=== PATIENT | male | born 1945 | race Caucasian/White ===

== ENCOUNTER 2019-04-21 08:30 | Outpatient (RCR) | payer MEDICARE, OTHER, SELFPAY ==
--- NOTE | 2019-04-07 09:38 | PTOPEVAL ---
Thank you for referring this patient to [facility]. Please review, sign, date and return this plan of care BRUCE. Pt seen for PT eval today due to chronic back pain. He demonstrates decreased back and hip motion with muscle length restriction/tightness. He demonstrates posture and gt impairments. He requires additional skilled therapy to address impairments and provide a HEP. Cont PT 1x/wk x 3-4 wk. I agree with and certify that the following plan of care is medically necessary. Referring Physician Date Attending Provider: Judah Mart MD Referring Provider: *PT Outpatient Evaluation Start: 04/07/19 08:28 Freq: Status: Active Protocol: Document 04/07/19 08:31 DENISE (Rec: 04/07/19 09:38 [id number]) Therapy Assessment Status Assessment Status Assessment Status Evaluation Outpatient Past Medical History Neurological History Hx Neurological Disorders No Significant History Cardiovascular History Hx Hypertension Yes Gastrointestinal History Hx Gastrointestinal Disorders No Significant History Genitourinary History Hx Genitourinary Disorders No Significant History Musculoskeletal History Hx Back Injury Yes: 10 years ago Hx Back Pain Yes: OA of back Hx Other Musculoskeletal Disorders Yes: rotator cuff tear of rigth Evaluation Information Problem Diagnosis low back pain Onset 1 year ago Subjective Information he reports deep buttock/hip Query Text:As Reported By Patient/ pain that he thought was hips, Family but x-rays shows it was coming from his back. He had therapy 5 years ago, but had a flare-up of his sciatic nerve pain. He reports the leg stretching is what caused his pain. 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 He is perform resistance ex, but he feels a stretching when performing the exercise. He also c/o radiating symptoms into siobhan UE with right hand weakness. Diagnostic Tests X-Rays For This Problem No Previous Treatments Previous Treatments For This Problem 5-6 years ago Prior Level of Function Activity Level (Last 3 Months) Occupation mcdaniel Activity of Daily Living Ability Independent Indoor/Home Mobility Independent Community Mobility Independent Stairs Ability Independent Cooking Yes Cleaning Ye
--- NOTE | 2019-05-03 16:06 | PCPTNOTE ---
Patient called & cancelled scheduled appointment for 05/04/19. He does not have additional appointment scheduled. Will plan to DC if no additional f/u scheduled.
--- NOTE | 2019-06-10 11:34 | PCPTNOTE ---
Admitting Provider: Attending Provider: Judah Mart MD Patient:Fabiano Martinez Date of :1945 Discharge Summary Patient has not returned for any further treatments since 04/21/2019, therefore he will be discharged at this time. Patient?s initial visit was on 04/07/2019 08:30 and he had a total of 1 visits. The goals have been not met. [facility] you [facility]. Please review, sign, date and return this discharge summary BRUCE. I have been updated about the patient's current status and I agree with discharge from the above service at this time. Referring Physician Date
== END 2019-06-13 08:40 | disposition home or self-care (01) ==
LOC: ANHPT 08:30
PROVIDERS: Visit Provider Orthopaedic Surgery
DX: M54.5 Low back pain (principal)
CPT/HCPCS: 97110; 97161

== ENCOUNTER 2019-04-28 08:37 | Outpatient (CLI) | payer MEDICARE, OTHER, SELFPAY ==
--- NOTE | ~2019-04-28 | CT_ITS ---
EXAMINATION: CTA abdomen pelvis EXAM DATE: 04/28/2019 09:26 INDICATION: Abdominal aortic aneurysm. TECHNIQUE: Spiral CT angiogram of the abdomen and pelvis was performed following intravenous injectio n of 100 mL Omnipaque 350. Axial, coronal and sagittal images were reviewed. Maximum intensity proje ction 3-D reconstructions of the arteries were created by the technologist on dedicated workstation. The dose-length product (DLP) for this examination was 1245.01 mGy-cm. The exposure was tailored a ccording to patient size (auto mA exposure control), and iterative reconstruction (ASIR) was used as additional dose reduction technique. There is no prior study for comparison. FINDINGS: Left inguinal hernia repair. Small right inguinal fat-containing hernia. Abdominal aorta is normal in caliber with mild scattered arteriosclerotic disease. Renal, celiac, superior and inferior mesenteric arteries are patent. No aortic dissection. The liver, spleen, adrenal glands and pancreas are unremarkable. Gallbladder is unremarkable. No bi liary obstruction. Portal and splenic veins are patent. Kidneys enhance symmetrically. There is no hydronephrosis. The prostate is unremarkable. The bladder is unremarkable. There is no retroperi toneal or pelvic lymphadenopathy. The appendix is not positively visualized. There is no pericecal inflammatory change to suggest appe ndicitis. There is moderate descending and sigmoid colonic diverticulosis. There is no adjacent infl ammatory change to suggest diverticulitis. The stomach and small bowel are unremarkable. There is ex pected amount of colonic stool. No free intraperitoneal gas. Mild cardiomegaly. The lung bases a re unremarkable. There are no osteoblastic or osteolytic lesions identified. Overall moderate lumbar spondylosis. IMPRESSION: 1. Normal abdominal aortic caliber with mild arteriosclerotic disease. 2. Moderate sigmoid and descending colonic diverticulosis. Reviewed, dictated and finalized at location B.
[2019-04-28 09:20] LABS: Estimated Glomerular Filt Rate > 60
[2019-04-28 10:36] LABS: Alanine Aminotransferase 41 U/L (4-50); Albumin Level 4.5 g/dL (3.5-5.1); Alkaline Phosphatase 41 U/L (38-126); Aspartate Amino Transferase 42 U/L (17-59); Bilirubin,Total 0.6 mg/dL (0.2-1.3); Blood Urea Nitrogen 17 mg/dL (9-20); Calcium 9.5 mg/dL (8.4-10.2); Carbon Dioxide 25 mmol/L (22-30); Chloride 102 mmol/L (98-107); Cholesterol 133 mg/dL (0-200); Estimated Glomerular Filt Rate > 60; Glucose 118 mg/dL (75-110); HDL Direct 68 mg/dL; Potassium 4.3 mmol/L (3.4-5.0); Sodium 138 mmol/L (137-145); Triglycerides 86 mg/dL (<150)
[2019-04-28 10:47] LABS: LDL Cholesterol Direct 53 mg/dL
== END 2019-04-28 08:38 | disposition home or self-care (01) ==
LOC: ANHIMG 08:39
PROVIDERS: PCP Internal Medicine; Visit Provider Internal Medicine
DX: I71.4 Abdominal aortic aneurysm, without rupture (principal); I10 Essential (primary) hypertension; E78.5 Hyperlipidemia, unspecified; K57.30 Diverticulosis of large intestine without perforation or abscess without bleeding
CPT/HCPCS: 36415; 74174; 80053; 80061; Q9967

== ENCOUNTER 2019-06-15 10:30 | Outpatient (CLI) | payer MEDICARE, OTHER, SELFPAY ==
--- NOTE | ~2019-06-15 | MR_ITS ---
EXAMINATION: MR cervical spine wo con DATE: 06/15/2019 13:41 INDICATION: Neck pain. Left shoulder and elbow pain. TECHNIQUE: Magnetic resonance imaging (MRI) of the cervical spine was performed without intravenous c ontrast. Sequences included sagittal T2-weighted FSE, sagittal STIR FSE, sagittal T1-weighted FSE, ax ial MERGE, and axial T2-weighted FSE. COMPARISON: None FINDINGS: There is mild kyphosis of cervical spine. There is 2 mm anterolisthesis of C4 on C5. There is 9 degrees dextrocurvature of cervical spine. Vertebral body heights are normal. There is mildly de creased disc height at C3-C4 and C4-C5 and moderately decreased disc height at C5-C6 and C6-C7. The s jonah cord signal intensity is normal. The following disc levels are specifically discussed: C2-C3: The disc does not extend beyond the endplate margin. There is no uncovertebral joint osteoarth ritis. There is severe right facet joint osteoarthritis. There is ankylosis of left facet joint with mild hypertrophy There is mild bilateral neural foraminal stenosis. There is no central canal stenosi s. C3-C4: The disc does not extend beyond the endplate margin. There is ankylosis of the uncovertebral j oints without hypertrophy. There is severe right facet joint osteoarthritis. There is ankylosis of le ft facet joint with moderate hypertrophy. There is mild right and moderate left neural foraminal sten osis. There is no central canal stenosis. C4-C5: The disc does not extend beyond the endplate margin. There is mild right and moderate left unc overtebral joint osteoarthritis. There is severe bilateral facet joint osteoarthritis. There is mild right and moderate left neural foraminal stenosis. There is no central canal stenosis. C5-C6: The disc is bulging. There is severe bilateral uncovertebral joint osteoarthritis. There is mo derate right and severe left facet joint osteoarthritis. There is moderate bilateral neural foraminal stenosis. There is mild central canal stenosis with ventral indentation of spinal cord. C6-C7: The disc is bulging. There is severe bilateral uncovertebral joint osteoarthritis. There is mi ld bilateral facet joint osteoarthritis. There is severe bilateral neural foraminal stenosis. There i s moderate central canal stenosis with ventral and dorsal indentation of the spinal cord. C7-T1: The disc does not extend beyond the endplate margin. There is no uncovertebral joint osteoarth ritis. There is mild bilateral facet joint osteoarthritis. There is mild bilateral neural foraminal s tenosis. There is no central canal stenosis. IMPRESSION: 1. Severe cervical spondylosis. Reviewed, dictated and finalized at location A.
--- NOTE | ~2019-06-15 | MR_ITS ---
EXAMINATION: MR humerus LT wo con DATE: 06/15/2019 13:41 INDICATION: Left biceps weakness. Left shoulder and elbow pain. TECHNIQUE: Magnetic resonance imaging (MRI) of the left humerus was performed without intravenous con trast. Sequences included axial PD-weighted FS FSE and STIR FSE, sagittal STIR FSE, coronal oblique P D-weighted FS FSE and T2-weighted FS FSE, and sagittal oblique T2-weighted FS FSE and T1-weighted FSE . COMPARISON: Left shoulder MRI 07/03/2013 FINDINGS: Coracoacromial arch: The acromion undersurface is curved in morphology (type II). There is severe acromial clavicular join t osteoarthritis including inferior directed osteophytes. There is mild subacromial/subdeltoid bursit is. Rotator cuff: There is an articular-sided partial-thickness tear of supraspinatus tendon measuring 11 mm anterior t o posterior by 13 mm proximal to distal by up to 90% tendon thickness. There is mild infraspinatus te ndinopathy. Teres minor tendon is normal. There is mild subscapularis tendinopathy. There is no asymm etric fatty atrophy of the rotator cuff muscle bellies. Biceps tendon and glenoid labrum: Proximal biceps tendon is in bicipital groove. There is mild intra-articular biceps tendinopathy. The distal biceps tendon is normal. The biceps muscle belly is normal. There is a degenerative tear of t he superior labrum (type I SLAP tear). Fluid: There is no glenohumeral joint effusion. Bones/cartilage: Humeral head cartilage is normal. Glenoid cartilage is normal. IMPRESSION: 1. Mild proximal biceps tendinopathy. Normal biceps muscle and distal tendon. 2. Partial-thickness tear of supraspinatus tendon. 3. Severe acromioclavicular joint osteoarthritis. 4. Mild subacromial/subdeltoid bursitis. Reviewed, dictated and finalized at location A.
== END 2019-06-15 10:31 | disposition home or self-care (01) ==
PROVIDERS: PCP Internal Medicine; Visit Provider Internal Medicine
DX: M54.2 Cervicalgia (principal); M25.522 Pain in left elbow; M25.512 Pain in left shoulder; M75.82 Other shoulder lesions, left shoulder; S46.012A Strain of muscle(s) and tendon(s) of the rotator cuff of left shoulder, initial encounter; M19.012 Primary osteoarthritis, left shoulder; M75.52 Bursitis of left shoulder; M47.812 Spondylosis without myelopathy or radiculopathy, cervical region
CPT/HCPCS: 72141; 73218

== ENCOUNTER 2020-02-07 08:12 | Outpatient (CLI) | payer MEDICARE, OTHER, SELFPAY ==
[2020-02-07 08:49] LABS: Basophils Percent Auto 0.6 % (0.2-1.2); Eosinophils Absolute Auto 0.2 K/mm3 (0-0.3); Eosinophils Percent Auto 3.1 % (0-4.4); Hematocrit 40.4 % (42.0-52.0); Hemoglobin 14.5 g/dL (14.0-18.0); Immature Granulocyte Absolute 0.02 K/mm3 (0.00-0.031); Immature Granulocyte Percent A 0.3 % (0-0.5); Lymphocytes Absolute Auto 2.24 K/mm3 (0.9-3.2); Lymphocytes Percent Auto 31.1 % (18.3-44.2); Mean Corpuscular HGB Conc 35.9 g/dl (32-36); Mean Corpuscular Hemoglobin 32.9 pg (26-34); Mean Corpuscular Volume 91.6 fl (80-100); Mean Platelet Volume 9.8 fl (7.4-10.4); Monocytes Absolute Auto 0.6 K/mm3 (0.1-0.6); Monocytes Percent Auto 8.3 % (2.6-8.5); Neutrophils Absolute Auto 4.1 K/mm3 (1.3-6.7); Neutrophils Percent Auto 56.6 % (45.5-73.1); Platelet Count Result 185 k/mm3 (150-375); Red Blood Count 4.41 M/mm3 (4.6-6.20); Red Cell Distribution Width 12.8 % (11.5-14.5); White Blood Count 7.2 K/mm3 (4.5-10.0)
[2020-02-07 09:08] LABS: Alanine Aminotransferase 49 U/L (4-50); Albumin Level 4.4 g/dL (3.5-5.1); Alkaline Phosphatase 41 U/L (38-126); Anion Gap 8 mmol/L (8-16); Aspartate Amino Transferase 50 U/L (17-59); Bilirubin,Total 0.8 mg/dL (0.2-1.3); Blood Urea Nitrogen 22 mg/dL (9-20); Calcium 10.2 mg/dL (8.4-10.2); Carbon Dioxide 28 mmol/L (22-30); Chloride 102 mmol/L (98-107); Cholesterol 151 mg/dL (0-200); Estimated Glomerular Filt Rate > 60; Glucose 127 mg/dL (75-110); HDL Direct 62 mg/dL; Potassium 4.4 mmol/L (3.4-5.0); Sodium 138 mmol/L (137-145); Triglycerides 102 mg/dL (<150); Uric Acid 4.8 mg/dL (3.5-8.5)
[2020-02-07 09:18] LABS: LDL Cholesterol Direct 67 mg/dL
[2020-02-07 09:29] LABS: Free T4 Free Thyroxine 0.74 ng/mL (0.78-2.19); Vitamin D 25 Hydroxy 54.5 ng/mL
[2020-02-07 09:37] LABS: Prostate Specific Antigen 1.5 ng/mL (< OR = 4.0)
[2020-02-07 10:52] LABS: Hemoglobin A1C 5.1 % (<5.7)
== END 2020-02-07 08:13 | disposition home or self-care (01) ==
PROVIDERS: PCP Internal Medicine; Visit Provider Internal Medicine
DX: E78.5 Hyperlipidemia, unspecified (principal); Z79.899 Other long term (current) drug therapy; Z12.5 Encounter for screening for malignant neoplasm of prostate; Z87.39 Personal history of other diseases of the musculoskeletal system and connective tissue; R79.89 Other specified abnormal findings of blood chemistry
CPT/HCPCS: 36415; 80053; 80061; 82306; 83036; 84153; 84439; 84443; 84550; 85025; G0103

== ENCOUNTER → 2020-03-31 09:55 | Outpatient (CLI) | payer MEDICARE, OTHER, SELFPAY ==
[2020-03-31 19:49] LABS: SARS-CoV-2 RNA PCR Negative
== END ==
PROVIDERS: PCP Internal Medicine; Visit Provider Internal Medicine Gastroenterology
DX: Z01.812 Encounter for preprocedural laboratory examination (principal); Z20.822 Contact with and (suspected) exposure to COVID-19
CPT/HCPCS: C9803; U0003; U0005

== ENCOUNTER 2020-08-14 08:27 | Outpatient (CLI) | payer MEDICARE, SELFPAY ==
--- NOTE | ~2020-08-14 | XR_ITS ---
EXAMINATION: XR hip BI 2V w AP pelvis DATE: 08/14/2020 08:50 INDICATION: Bilateral hip pain TECHNIQUE: AP view the pelvis and two views of each hip were obtained. COMPARISON: 04/27/2019 FINDINGS: Bone alignment is normal. There is no fracture. There is mild osteoarthritis of the hips. S evere lumbar spondylosis is noted. Changes in the left pelvis likely reflect inguinal hernia repair. Calcified atherosclerosis is noted. IMPRESSION: 1. Mild osteoarthritis of the hips. Reviewed, dictated and finalized at location B.
== END 2020-08-14 08:28 | disposition home or self-care (01) ==
LOC: ANHIMG 08:35
PROVIDERS: PCP Internal Medicine; Visit Provider Internal Medicine
DX: M16.0 Bilateral primary osteoarthritis of hip (principal)
CPT/HCPCS: 73521

== ENCOUNTER 2020-10-12 03:48 | Day surgery (SDC) | payer MEDICARE, SELFPAY ==
[2020-10-05 14:12] VITALS: BMI 33.5
[2020-10-12 09:35] VITALS: BP 165/75; PULSE 62; RESP 16; TEMP 35.7; O2SAT 98; BMI 33.0
[2020-10-12] MEDS: LACTATED RINGERS 1,000 ML 150 ML IV CONT (09:57)
--- NOTE | 2020-10-12 10:10 | WPDGICN ---
Assessment and Plan Assessment and plan (1) History of colon polyps: Code(s): Z86.010 - Personal history of colonic polyps Status: Acute Assessment and Plan: Patient has a prior history of colon polyps for this reason surveillance colonoscopy is recommended at this time. GI Consult Note Consult date/time: 10/12/20 10:10 HPI: Fabiano Martinez is a 75 year old male presents for surveillance colonoscopy. Patient has a prior history of colon polyps by colonoscopy [address] Bustos. Patient's current weight appetite bowel movements are normal. Patient denies abdominal pain. He has had no bleeding. Presents today for surveillance colonoscopy. Review of Systems Review of Systems: All systems reviewed & are unremarkable except as noted in HPI and below PMFSH Past Medical History Medical History (Updated 10/12/20 @ 10:11 by Chris Carlos MD) Bilateral hip pain BMI 35.0-35.9,adult Cervical radiculopathy Cervicalgia Elevated fasting glucose Elevated serum homocysteine level Encounter for routine adult health examination without abnormal findings Follow up Gout Hyperlipidemia Left arm weakness Left elbow pain Left shoulder pain ELIESER on CPAP Vitamin B12 deficiency Family History Family History Father Family history of suicide Family history of diabetes mellitus in first degree relative Patient's father is Mother Family history of transient ischemic attacks, Onset Age: 70 Patient's mother is Family history of chronic obstructive pulmonary disease Sibling Family history of lupus erythematosus, Onset Age: 47 Patient's brother is Grandparent Family history of suicide Other Diabetes mellitus Family history of cardiovascular disease Social History Social History Smoking status: Never smoker Second hand tobacco smoke exposure: No Alcohol intake: current Drinks per week: 21 Alcohol use details: wine Substance use type: does not use Living arrangements: with family Additional living arrangements comments: Additional occupation/education comments: Farm Spiritual care concerns: No Meds Home Medications and Allergies Home Medications Medication Instructions Recorded Confirmed Type omega-3 fatty acids 1,000 mg 2,000 mg PO BID cap 02/17/19 10/12/20 History capsule azelastine 137 mcg (0.1 %) nasal 2 spray NASAL Q12H #30 ml 05/16/19 10/12/20 Rx spray aerosol amlodipine 10 mg tablet 10 mg PO DAILY #90 tablet 07/07/19 10/12/20 Rx glucosamine sulfate 500 mg tablet 500 mg PO DAILY 02/07/20 10/12/20 History allopurinol 300 mg tablet See Rx Instructions .ROUTE 05/08/20 10/12/20 Rx .COMPLEX #90 tablet rosuvastatin 20 mg tablet See Rx Instructions .ROUTE 06/07/20 10/12/20 Rx .COMPLEX #90 tablet celecoxib 100 mg capsule 100 mg PO BID #180 cap 08/14/20 10/12/20 Rx multivitamin 1 tablet PO DAILY 08/14/20 10/12/20 History losartan 100 mg tablet 100 mg PO DAILY #90 tablet 09/17/20 10/12/20 Rx Allergies Allergy/AdvReac Type Severity Reaction Status Date / Time No Known Allergies Allergy Verified 10/12/20 09:44 Vital Signs Vital Signs - 24 hr 10/12/20 09:35 Temperature 96.3 F L Pulse Rate 62 Respiratory Rate 16 Blood Pressure 165/75 H Pulse Oximetry 98 Exam Narrative: Physical exam reveals patient be alert. Vital signs are stable. HEENT exam is unremarkable. Patient is anicteric. Lungs are clear to auscultation and percussion. Heart is without murmur or extra sounds. Abdominal exam bowel sounds present soft nontender with no organomegaly. Digital external rectal exam is normal.
--- NOTE | 2020-10-12 10:18 | WPDANESEPPF ---
Anes - Initial Pre Proc Eval Procedure: Operation Date: 10/12/20 10:30 Proposed Procedures p Screening Colonoscopy - Chris Carlos MD Date/Time: 10/12/20 10:18 Surgeon: Chris Carlos MD Pre Op Diagnosis: hx of colon polyps Z86.010 Patient Data Age: 75 Gender: M Height: 1.73 m Weight: 98.5 kg Last Vital Signs Temp 96.3 F L 10/12/20 09:35 Pulse 62 10/12/20 09:35 Resp 16 10/12/20 09:35 BP 165/75 H 10/12/20 09:35 Pulse Ox 98 10/12/20 09:35 Allergies Allergy/AdvReac Type Severity Reaction Status Date / Time No Known Allergies Allergy Verified 10/12/20 09:44 Home Medications Medication Instructions Recorded Confirmed Type omega-3 fatty acids 1,000 mg 2,000 mg PO BID cap 02/17/19 10/12/20 History capsule azelastine 137 mcg (0.1 %) nasal 2 spray NASAL Q12H #30 ml 05/16/19 10/12/20 Rx spray aerosol amlodipine 10 mg tablet 10 mg PO DAILY #90 tablet 07/07/19 10/12/20 Rx glucosamine sulfate 500 mg tablet 500 mg PO DAILY 02/07/20 10/12/20 History allopurinol 300 mg tablet See Rx Instructions .ROUTE 05/08/20 10/12/20 Rx .COMPLEX #90 tablet rosuvastatin 20 mg tablet See Rx Instructions .ROUTE 06/07/20 10/12/20 Rx .COMPLEX #90 tablet celecoxib 100 mg capsule 100 mg PO BID #180 cap 08/14/20 10/12/20 Rx multivitamin 1 tablet PO DAILY 08/14/20 10/12/20 History losartan 100 mg tablet 100 mg PO DAILY #90 tablet 09/17/20 10/12/20 Rx Patient hx anesthesia problems: none Family hx anesthesia problems: none PMFSH Past Medical History Medical History (Updated 10/12/20 @ 10:11 by Chris Carlos MD) Bilateral hip pain BMI 35.0-35.9,adult Cervical radiculopathy Cervicalgia Elevated fasting glucose Elevated serum homocysteine level Encounter for routine adult health examination without abnormal findings Follow up Gout Hyperlipidemia Left arm weakness Left elbow pain Left shoulder pain ELIESER on CPAP Vitamin B12 deficiency Family History Family History Father Family history of suicide Family history of diabetes mellitus in first degree relative Patient's father is Mother Family history of transient ischemic attacks, Onset Age: 70 Patient's mother is Family history of chronic obstructive pulmonary disease Sibling Family history of lupus erythematosus, Onset Age: 47 Patient's brother is Grandparent Family history of suicide Other Diabetes mellitus Family history of cardiovascular disease Social History Social History Smoking status: Never smoker Second hand tobacco smoke exposure: No Alcohol intake: current Drinks per week: 21 Alcohol use details: wine Substance use type: does not use Living arrangements: with family Additional living arrangements comments: Additional occupation/education comments: Farm Spiritual care concerns: No Anes - Eval Final PreProcedure Day of Procedure 10/12/20 10:18 Patient weight: obese Heart: regular rate and rhythm Lungs: clear to auscultation Airway: Mallampati scale class II Neurological: alert and oriented Last oral intake: >/= 8 hours ASA classification: III Emergent: no Anesthetic plan: proceed Anesthesia type and monitoring: general GIVS and standard monitoring Informed Consent: The patient's anesthetic plan and its attendant risks and benefits were discussed with the patient/family/POA. Questions were solicited and answers provided to the satisfaction of the patient/family/POA.
[2020-10-12] MEDS: SIMETHICONE ORAL SUSPENSION 20 MG/0.3 ML 30 ML BOTTLE 0.6 ML IRRIGATION (10:27)
[2020-10-12 10:37] VITALS: BP 117/77; PULSE 62; RESP 19; O2SAT 96
[2020-10-12 10:47] VITALS: BP 124/80; PULSE 64; RESP 19; O2SAT 95
[2020-10-12 10:57] VITALS: BP 139/81; PULSE 55; RESP 18; O2SAT 100
== END 2020-10-12 11:10 | disposition home or self-care (01) ==
PROVIDERS: PCP Internal Medicine; Visit Provider Internal Medicine Gastroenterology
PROC: 0DJD8ZZ Inspection of Lower Intestinal Tract, Via Natural or Artificial Opening Endoscopic (ICD-10-PCS; CPT 45378; principal; 2020-10-12 10:30)
DX: Z12.11 Encounter for screening for malignant neoplasm of colon (principal); D12.2 Benign neoplasm of ascending colon; D12.3 Benign neoplasm of transverse colon; D12.4 Benign neoplasm of descending colon; K57.30 Diverticulosis of large intestine without perforation or abscess without bleeding; K64.8 Other hemorrhoids; E78.5 Hyperlipidemia, unspecified; E53.8 Deficiency of other specified B group vitamins; M10.9 Gout, unspecified; M54.12 Radiculopathy, cervical region; G47.33 Obstructive sleep apnea (adult) (pediatric)
CPT/HCPCS: 45385; 88305; J2704; J7120

== ENCOUNTER 2022-06-20 08:07 | Outpatient (CLI) | payer MEDICARE, SELFPAY ==
--- NOTE | ~2022-06-20 | XR_ITS ---
EXAMINATION: XR hip LT 2V w AP pelvis DATE: 06/20/2022 08:36 INDICATION: Bilateral primary osteoarthritis of hip. TECHNIQUE: An anteroposterior view of the pelvis and 2 views of left hip were obtained. COMPARISON: Pelvis and hip radiographs 08/14/2020 FINDINGS: There is lumbar levocurvature and moderate spondylosis. No fracture. There is mild osteoart hritis of the hips. Surgical clips overlying left pelvis are likely from hernia repair. IMPRESSION: 1. Mild osteoarthritis of the hips. Reviewed, dictated and finalized at location A.
--- NOTE | ~2022-06-20 | XR_ITS ---
EXAMINATION: XR lumbar spine min 4V DATE: 06/20/2022 08:36 INDICATION: Low back pain TECHNIQUE: Anteroposterior and lateral in neutral, flexion and extension views of the lumbar spine we re obtained. COMPARISON: 04/27/2019 FINDINGS: 9 degree lumbar levocurvature. 2 mm retrolisthesis of L1 on L2 which is unchanged with flexion or ext ension. Mild hypomobility with no abnormal transitory motion with flexion or extension. Chronic likel y physiologic mild anterior wedging at T11 and T12. Lumbar vertebral body heights are normal. Moderat e disc height loss at L2-L3, L4-L5 and L5-S1, mild to moderate disc height loss at L3-L4 and mild dis c height loss at T12-L1. Moderate to severe lower lumbar facet osteoarthritis. Mild bilateral sacroil iac osteoarthritis. Postoperative change of prior left inguinal hernia repair. IMPRESSION: 1. Moderate lumbar spondylosis with hypomobility an 2 mm retrolisthesis L1 on L2 but no abnormal gonzalez slatory motion with flexion and extension. Reviewed, dictated and finalized at location B. IMPRESSION: 1. Moderate lumbar spondylosis with hypomobility an 2 mm retrolisthesis L1 on L 2 but no abnormal translatory motion with flexion and extension.
== END 2022-06-20 08:08 | disposition home or self-care (01) ==
PROVIDERS: PCP Internal Medicine; Visit Provider Internal Medicine
DX: M16.0 Bilateral primary osteoarthritis of hip (principal); M47.896 Other spondylosis, lumbar region
CPT/HCPCS: 72110; 73502

== ENCOUNTER 2022-06-30 10:15 | Outpatient (CLI) | payer MEDICARE, SELFPAY ==
--- NOTE | ~2022-06-30 | US_ITS ---
EXAMINATION:US venous doppler LE LT INDICATION:Left calf pain TECHNIQUE: Multiple grayscale, color flow and Doppler images of the left lower extremity deep venous systems were obtained and reviewed. COMPARISON:No prior studies for comparison. FINDINGS: The common femoral, superficial femoral and popliteal veins demonstrate normal respiratory variation, augmentation and compressibility. Color flow is also seen within the posterior tibial, pe roneal, greater saphenous and profunda veins. IMPRESSION: 1: No lower extremity deep venous thrombosis. Reviewed, dictated and finalized at location B.
== END 2022-06-30 10:16 | disposition home or self-care (01) ==
PROVIDERS: PCP Internal Medicine; Visit Provider Internal Medicine
DX: M79.605 Pain in left leg (principal); M79.89 Other specified soft tissue disorders; R22.42 Localized swelling, mass and lump, left lower limb
CPT/HCPCS: 93971

== ENCOUNTER 2023-06-15 14:19 | Outpatient (CLI) | payer MEDICARE, SELFPAY ==
--- NOTE | ~2023-06-15 | CT_ITS ---
CT of the Abdomen and Pelvis: Indication: Abdominal pain Technique: 2.5 mm axial scans were obtained through the abdomen and pelvis following intravenous adm inistration of 100 cc of Omnipaque 350. Dose reduction technique was used on this scan by utilizing a utomated exposure control and iterative reconstruction technique. The dose-length product (DLP) was 1 271.73 mGy-cm. Findings: Scans through the lung bases are unremarkable. There is diffuse hepatic steatosis. The spleen, pancreas, gallbladder, adrenals and kidneys are withi n normal limits. There are atherosclerotic calcifications of the aorta. No lymphadenopathy. No bowel obstruction or bowel wall thickening. There is no evidence to suggest acute appendicitis. Images through the pelvis were performed. Urinary bladder unremarkable. No pelvic mass seen. No ascit es. Small bilateral fat-containing inguinal hernias are present, right larger than left. Impression: Diffuse hepatic steatosis. Small bilateral fat-containing inguinal hernias, right larger than left. Reviewed, dictated and finalized at [facility]. Impression: Diffuse hepatic steatosis. Small bilateral fat-containing inguinal hernias, right larger than left.
[2023-06-15 14:40] LABS: Estimated Glomerular Filt Rate > 60
== END 2023-06-15 14:20 | disposition home or self-care (01) ==
LOC: ANHIMG 14:22
PROVIDERS: PCP Internal Medicine; Visit Provider Internal Medicine
DX: K76.0 Fatty (change of) liver, not elsewhere classified (principal); K40.20 Bilateral inguinal hernia, without obstruction or gangrene, not specified as recurrent; Z98.890 Other specified postprocedural states; Z87.19 Personal history of other diseases of the digestive system
CPT/HCPCS: 74177; Q9967

== ENCOUNTER 2023-08-03 07:31 | Outpatient (CLI) | payer MEDICARE, SELFPAY ==
--- NOTE | 2023-08-03 07:52 | ECG_ITS ---
Test Date: 2023-08-03 07:59:40 Measurements Intervals [place] Rate: 63 P: 91 OK: 174 QRS: 3 QRSD: 97 T: 31 QT: 414 QTc: 426 Interpretive Statements SINUS RHYTHM LOW QRS VOLTAGE IN PRECORDIAL LEADS [QRS DEFLECTION < 1.0 mV IN CHEST LEADS] MINIMAL ST DEPRESSION [0.025+ mV ST DEPRESSION] BORDERLINE ECG WARNING: DATA QUALITY MAY AFFECT INTERPRETATION No previous ECG available for comparison Electronically Signed On 08-03-2023 15:18:28 CDT by Ronnell Carmona M.D.
[2023-08-03 08:57] LABS: Anion Gap 8 mmol/L (4-12); Blood Urea Nitrogen 23 mg/dL (9-20); Calcium 10.6 mg/dL (8.4-10.2); Carbon Dioxide 26 mmol/L (22-30); Chloride 105 mmol/L (98-107); Estimated Glomerular Filt Rate > 60; Glucose 89 mg/dL (65-110); Potassium 4.5 mmol/L (3.4-5.0); Sodium 139 mmol/L (137-145)
== END 2023-08-03 07:32 | disposition home or self-care (01) ==
LOC: ANHSURGERY 07:37
PROVIDERS: Anesthesiology; PCP Internal Medicine; Visit Provider Surgery
DX: Z01.818 Encounter for other preprocedural examination (principal); I10 Essential (primary) hypertension; R94.31 Abnormal electrocardiogram [ECG] [EKG]
CPT/HCPCS: 36415; 80048; 93005

== ENCOUNTER 2023-08-10 01:24 | Day surgery (SDC) | payer MEDICARE, SELFPAY ==
--- NOTE | 2023-07-30 08:38 | PC.NURSE ---
Addendum entered by Mary Pagan RN 07/30/23 09:00: PT NOW COMING IN FOR PRE OP TESTING. THESE INSTRUCTIONS WILL BE GIVEN TO HIM AT THAT TIME.WILL NOT NEED TO MAIL INSTRUCTIONS Original Note: Report to the Outpatient Waiting Room, entrance under the [facility]ilion located off [facility], at time __1000 am on date _08/10/23 . Planned Procedure Time: _1200 NOON . Time changes happen often and if your time is changed the preop area will call you the afternoon before. - You and your visitor will be asked to self-screen and do not enter if you have any COVID symptoms. - A mask is optional within the hospital at this time. Patients may have clear liquids (water, carbonated beverages, clear teas, apple juice) until 3 hours prior to surgery ( 9:00 AM)with a maximum of 20 ounces. - No food from midnight until time of surgery - Infants may have breast milk until 4 hours before surgery, formula 6 hours prior to surgery. - Children will be allowed to drink immediately following surgery. If applicable, please bring a bottle or sippy cup to assist with drinking. Juice, water, soda, and popsicles are readily available. For infants on formula, please bring formula the day of surgery. Pacifiers are allowed. Take the following medications with a SIP of water the morning of surgery: _AMLODIPINE DO NOT STOP ANY OF YOUR OTHER PRESCRIPTION MEDICATIONS PRIOR TO SURGERY ?EXCEPT THE FOLLOWING Medications to discontinue per physician _HOLD ALL VITAMINS AND SUPPLEMENTS 3 DAYS PRE OP .LAST DOSE 08/06/23 Please no make-up, nail ecuadorean, hairspray, perfume, deodorant, or body powder the day of surgery. No jewelry (including any body piercings) or valuables the day of surgery, leave them at home. Please take a shower or bath the night before, or the morning of, surgery with an antibacterial soap. Wear comfortable, loose fitting clothing. Children are encouraged to wear pajamas. - Jewelry must be removed prior to entering the operating room. Rings and piercings that are not removed may be cut off. - The hospital will not accept responsibility for valuables. - Please leave all valuables, including medications, at home the day of surgery. If you are going home after surgery, a licensed explosives truck driver must drive you home. - NO public transportation without another adult if you receive anesthesia. - We recommend that an adult stay with you for 24 hours following discharge. - We also recommend that you do not drive, make important decision, drink alcoholic beverages, or take any drugs that were not prescribed by your health care provider for at least 24 hours after your discharge ti Follow any additional instructions given to you from your surgeon. If you or anyone in your household have experienced Covid symptoms in the past week, please notify your surgeon or the nurse liaison at the phone number below for possible testing. Telephone instructions given to ___PATIENT and asked if any additional questions and then verbalized understanding. PER REQUEST FROM PATIENT INSTRUCTIONS ALSO MAILED TO HIM Patient advised to call surgeon office or pre surgery nurse liaison [phone] if any additional questions.
[2023-07-30 08:46] VITALS: BMI 32.7
[2023-08-10] VITALS (9 sets, daily range): BP systolic 139–172; BP diastolic 63–91; PULSE 59–72; RESP 16–20; TEMP 36.2–36.9; O2SAT 95–100; BMI 32.8
[2023-08-10] MEDS: LACTATED RINGERS 1,000 ML 30 ML IV CONT ×3 (12:02→16:46)
[2023-08-10] MEDS: ACETAMINOPHEN 500 MG TABLET 1000 MG PO (12:15)
[2023-08-10] MEDS: KETOROLAC 15 MG/ML VIAL (*BKC) IV PUSH (12:16)
--- NOTE | 2023-08-10 12:24 | WPDANESEPPF ---
Anes - Initial Pre Proc Eval Procedure: Operation Date: 08/10/23 12:30 Proposed Procedures p Open Recurrent Left Inguinal Hernia Repair with Mesh, Open Right Inguinal Hernia Repair with Mesh - Marvin Sheehan MD Date/Time: 08/10/23 12:24 Surgeon: Marvin Sheehan MD Pre Op Diagnosis: recurrent left Inguinal Hernia, Patient Data Age: 77 Gender: M Height: 1.73 m Weight: 98 kg Last Vital Signs Temp 98.4 F 08/10/23 11:00 Pulse 62 08/10/23 11:00 Resp 16 08/10/23 11:00 BP 172/81 H 08/10/23 11:00 Pulse Ox 97 08/10/23 11:00 Allergies Allergy/AdvReac Type Severity Reaction Status Date / Time No Known Allergies Allergy Verified 08/10/23 11:49 Home Medications Medication Instructions Recorded Confirmed Type glucosamine sulfate 500 mg tablet 500 mg PO DAILY 02/07/20 08/10/23 History (Glucosamine) multivitamin 1 tablet PO DAILY 08/14/20 08/10/23 History omega-3 fatty acids 1,000 mg 1,000 mg PO DAILY 05/10/21 08/10/23 History capsule (Fish Oil Concentrate) allopurinol 300 mg tablet See Rx Instructions .Route 02/19/23 08/10/23 Rx .COMPLEX #90 tabs rosuvastatin 20 mg tablet See Rx Instructions .Route 02/20/23 08/10/23 Rx .COMPLEX #90 tabs losartan 100 mg tablet See Rx Instructions .Route 05/20/23 08/10/23 Rx .COMPLEX #90 tabs celecoxib 100 mg capsule See Rx Instructions .Route 07/10/23 08/10/23 Rx .COMPLEX #180 caps azelastine 137 mcg (0.1 %) nasal See Rx Instructions .Route 07/27/23 08/10/23 Rx spray aerosol .COMPLEX #30 mL amlodipine 5 mg tablet 10 mg PO EVERY OTHER DAY 08/10/23 08/10/23 History Patient hx anesthesia problems: none Family hx anesthesia problems: none Results Review: All pre-operative results and documents have been reviewed as part of the pre-operative evaluation. [facility] Past Medical History Medical History Bilateral hip pain BMI 33.0-33.9,adult BMI 35.0-35.9,adult Cervical radiculopathy Cervicalgia DJD (degenerative joint disease) of cervical spine Elevated fasting glucose Elevated serum homocysteine level Encounter for Medicare annual wellness exam Encounter for routine adult health examination without abnormal findings Enlarged prostate without lower urinary tract symptoms (luts) Follow up Gout Hearing loss Hyperlipidemia Left arm weakness Left elbow pain Left groin pain Left shoulder pain Lumbosacral spondylosis with radiculopathy Mass of left lower leg Muscle ache of extremity ELIESER on CPAP Pain and swelling of left lower extremity Paresthesia and pain of left extremity Proteinuria Pure hypercholesterolemia Sciatica of left side Sinusitis Vision changes Vitamin B12 deficiency Surgical History Surgical History History of arthroplasty of left shoulder S/P cataract surgery Family History Family History Father Family history of suicide Family history of diabetes mellitus in first degree relative Patient's father is Mother Family history of transient ischemic attacks, Onset Age: 70 Patient's mother is Family history of chronic obstructive pulmonary disease Sibling Family history of lupus erythematosus, Onset Age: 47 Patient's brother is Grandparent Family history of suicide Other Diabetes mellitus Family history of cardiovascular disease Social History Social History Smoking status: Never smoker Second hand tobacco smoke exposure: No Alcohol intake: current Drinks per week: 21 Alcohol use details: wine Substance use type: does not use Do You Feel Safe in your Home?: Yes Lack of Transportation: No Lack of Food: Never True Current Housing: I Have Housing Concerned About Future Housing: No Difficulty Paying Gas/Laura
--- NOTE | 2023-08-10 12:38 | PM.IMHP ---
H&P: HPI History of Present Illness Date/Time: 08/10/23 12:38 Chief Complaint: Bilateral fat containing inguinal hernias, left recurrent and right primary Narrative: Mr. Martinez presents to the office at the request of Dr. Brady for evaluation. He has a one year history of left groin discomfort, with recent increase in intensity and frequency. Has hx of laparoscopic left inguinal hernia repair 20+ years ago. Was sent by his PCP for a CT abd/pel, performed 06/15/2023, showing small bilateral fat-containing inguinal hernias - right > left. He denies change in his bowel habits, urinary difficulty, nausea, vomiting, or abdominal distension. CT scan also showed the tacks used during repair of his previous laparoscopic left inguinal hernia. Review of Systems Review of Systems: The remainder of the review of systems to include constitutional, HEENT, cardiovascular, respiratory, GI, , integumentary, musculoskeletal, endocrine, immunologic, hematologic, psychiatric, and neurologic are all negative except for which is mentioned above in the HPI. [facility] Past Medical History Medical History Bilateral hip pain BMI 33.0-33.9,adult BMI 35.0-35.9,adult Cervical radiculopathy Cervicalgia DJD (degenerative joint disease) of cervical spine Elevated fasting glucose Elevated serum homocysteine level Encounter for Medicare annual wellness exam Encounter for routine adult health examination without abnormal findings Enlarged prostate without lower urinary tract symptoms (luts) Follow up Gout Hearing loss Hyperlipidemia Left arm weakness Left elbow pain Left groin pain Left shoulder pain Lumbosacral spondylosis with radiculopathy Mass of left lower leg Muscle ache of extremity ELIESER on CPAP Pain and swelling of left lower extremity Paresthesia and pain of left extremity Proteinuria Pure hypercholesterolemia Sciatica of left side Sinusitis Vision changes Vitamin B12 deficiency Surgical History Surgical History History of arthroplasty of left shoulder S/P cataract surgery Family History Family History Father Family history of suicide Family history of diabetes mellitus in first degree relative Patient's father is Mother Family history of transient ischemic attacks, Onset Age: 70 Patient's mother is Family history of chronic obstructive pulmonary disease Sibling Family history of lupus erythematosus, Onset Age: 47 Patient's brother is Grandparent Family history of suicide Other Diabetes mellitus Family history of cardiovascular disease Social History Social History Smoking status: Never smoker Second hand tobacco smoke exposure: No Alcohol intake: current Drinks per week: 21 Alcohol use details: wine Substance use type: does not use Do You Feel Safe in your Home?: Yes Lack of Transportation: No Lack of Food: Never True Current Housing: I Have Housing Concerned About Future Housing: No Difficulty Paying Gas/Electric Bills: No Difficulty Paying for Meds: No Currently Unemployed: No Education: High School Diploma/GED Difficulty w/ Childcare or Family Care: No Living arrangements: with family Additional living arrangements comments: 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
--- NOTE | 2023-08-10 12:42 | WPDHPUPDATE1 ---
History and Physical Update Update Date/Time: 08/10/23 12:42 History and Physical has been reviewed, including an updated exam of the patient. There are NO changes in the patient's condition. Risks, benefits, and alternatives have been discussed and questions answered. Patient agrees to proceed with procedure.
[2023-08-10] MEDS: ceFAZolin 2 GM/D5W 50 ML 2 GM/50 ML BAG IVPB (13:05)
[2023-08-10] MEDS: LIDO 1%/EPINEPHRINE 1:100,000 20 ML VIAL 30 ML INFILTRATE (13:19)
[2023-08-10] MEDS: BUPivacaine HCL 0.5% PF 30 ML VIAL INFILTRATE (13:20)
--- NOTE | 2023-08-10 14:41 | SUR.OPER ---
Left side started at 1441
--- NOTE | 2023-08-10 16:12 | PM.OP ---
Procedure Note - Brief Procedure Note - Brief Date of procedure: 08/10/23 recurrent left Inguinal Hernia, non recurrent hernia Procedure performed: Open recurrent left inguinal hernia repair with onlay placement of Bard soft mesh patch (Sorin repair). Open non recurrent right inguinal hernia repair with Ultrapro hernia system mesh (Gilbert repair). Surgeon: Marvin Sheehan MD Performance Improvement Manager: Chris MUÑIZ Anesthesia: GETA Implants: Extra-large oval Ultrapro hernia system mesh right inguinal hernia Bard soft mesh onlay mesh to recurrent left inguinal hernia Estimated blood loss (mL): 30 Drains: No Packing: No Pathology: None sent Complications: No immediate complications Condition: Stable Disposition: PACU
[2023-08-10] MEDS: oxyCODONE HCL (*CRX) 5 MG TAB IR PO (17:37)
--- NOTE | 2023-08-11 15:32 | W.PM.PROC2 ---
Procedure Note - Detailed Date of Procedure 08/10/23 Pre-op Diagnosis Recurrent left Inguinal Hernia, Non recurrent right inguinal hernia. Post-op Diagnosis Same Procedure Performed Open recurrent left inguinal hernia repair with Marlex onlay mesh patch (Sorin repair). Open right inguinal hernia repair with Ultrapro hernia system mesh (Gilbert repair). Surgeon Marvin Sheehan MD Dry Janitor Chris MUÑIZ Anesthesia General Indications Patient is a 77-year-old gentleman who over 20 years ago had a laparoscopic left inguinal hernia repair with mesh. He presents with recurrent left inguinal hernia that is slowly enlarging as well as a asymptomatic right inguinal hernia. He presents now for repair of the recurrent left inguinal hernia repair with mesh was open approach as he had a prior laparoscopic approach with many tacks placed into the posterior she. He is also going to have a open non recurrent inguinal hernia repair with mesh as well. Findings Patient had a large direct right inguinal hernia which was non recurrent. Patient a much smaller recurrent left inguinal hernia that occurred inferior and lateral to the old laparoscopic mesh. Description of Procedure After informed consent was obtained patient brought to the operating room was placed supine position and general endotracheal anesthesia was administered. The abdomen bilateral groin regions were then prepped and draped usual sterile fashion. A time-out was then performed correctly identifying the patient as well as procedure to be performed. He was given perioperative IV antibiotics. I then proceeded to repair the none recurrent reducible right inguinal hernia 1st. A oblique incision was then made in the right groin region about 2 fingerbreadths above the palpated right pubic tubercle. I then dissected down through the subcu tissues and Zaina's fascia electrocautery. The external oblique aponeurosis was encountered the external ring was identified. I then incised the external oblique aponeurosis a scalpel was then opened widely out through the external ring with combination electrocautery in and scissor dissection. The hemostatic muscle fibers and cord structures were then dissected free of the undersurface of the external oblique aponeurosis with blunt finger electrocautery dissection. I then encircled the cord structures at the pubic tubercle and then placed a Clive drain around the cord structures today with retraction. Could see the patient large direct inguinal hernia defect. There is bulging out through the floor of the inguinal canal. I then proceeded to dissect the fatty tissue away from the other structures and then proceeded to reduce the direct right inguinal hernia sac. I then incised the attenuated fibers transversalis fascia and resected this tissue. It was discarded. A saline moistened laparotomy sponge was then placed into the defect deep to the inferior epigastric vessels. That was blood sponge and finger dissection I bluntly dissected out the mild pectineal orifice on the right side. Once this is done I then used a extra-large oval extended piece of ultra Pro hernia system mesh for the repair. I then proceeded remove the mesh in the preperitoneal space and then placed the underlay portion of the mesh through the floor of the inguinal canal and it spread out widely the cover the whole myopectineal orifice. The attenuated muscle fibers of the transverse fascial then approximated over the underlay portion of the mesh to recreate the floor of the canal. There is then with interrupted 3 2-0 Vicryl sutures placed in a figure-eight fashion. The connecting cylindrical portion of mesh came out through the floor of the inguinal canal and then the overlay portion of patch was then laid out over the floor. I then secured the overlay patch to the tissues around the pubic tubercle utilizing interrupted 2-0 Vicryl sutures. A slit was then cut over the past coming cord structu
== END 2023-08-10 18:25 | disposition home or self-care (01) ==
PROVIDERS: PCP Internal Medicine; Visit Provider Surgery
PROC: (CPT 49520; principal; 2023-08-10 12:30)
DX: K40.91 Unilateral inguinal hernia, without obstruction or gangrene, recurrent (principal); K40.90 Unilateral inguinal hernia, without obstruction or gangrene, not specified as recurrent; E78.5 Hyperlipidemia, unspecified; N40.0 Benign prostatic hyperplasia without lower urinary tract symptoms; G47.33 Obstructive sleep apnea (adult) (pediatric); E78.00 Pure hypercholesterolemia, unspecified; E66.9 Obesity, unspecified; Z68.32 Body mass index [BMI] 32.0-32.9, adult
CPT/HCPCS: 49520; 49505; A9270; C1781; J0690; J1100; J1885; J2405; J2704; J3010; J7120

== ENCOUNTER 2024-01-18 00:23 | Day surgery (SDC) | payer MEDICARE, SELFPAY ==
[2023-12-30 12:42] VITALS: BMI 33.5
[2024-01-18 06:53] VITALS: BP 157/89; PULSE 66; RESP 18; TEMP 35.8; O2SAT 96
[2024-01-18] MEDS: LACTATED RINGERS 1,000 ML 150 ML IV CONT (07:08)
--- NOTE | 2024-01-18 07:31 | PM.IMHP ---
H&P: HPI History of Present Illness Date/Time: 01/18/24 07:31 Chief Complaint: History of polyps Narrative: The patient has a history of colonic polyps, the last colonoscopy was 5 years ago. There are no GI symptoms. Review of Systems Review of Systems: All systems reviewed & are unremarkable except as noted in HPI and below [facility] Past Medical History Medical History Bilateral hip pain BMI 33.0-33.9,adult BMI 35.0-35.9,adult Cervical radiculopathy Cervicalgia DJD (degenerative joint disease) of cervical spine Elevated fasting glucose Elevated serum homocysteine level Encounter for Medicare annual wellness exam Encounter for routine adult health examination without abnormal findings Enlarged prostate without lower urinary tract symptoms (luts) Follow up Gout Hearing loss Hyperlipidemia Left arm weakness Left elbow pain Left groin pain Left shoulder pain Lumbosacral spondylosis with radiculopathy Mass of left lower leg Muscle ache of extremity ELIESER on CPAP Pain and swelling of left lower extremity Paresthesia and pain of left extremity Proteinuria Pure hypercholesterolemia Sciatica of left side Sinusitis Vision changes Vitamin B12 deficiency Surgical History Surgical History (Updated 09/30/23 @ 14:09 by Anais Jenkins, MYLA) History of arthroplasty of left shoulder History of left inguinal hernia repair Open recurrent left inguinal hernia repair with Marlex onlay mesh patch (Sorin repair). 08/10/23 S/P cataract surgery Family History Family History Father Family history of suicide Family history of diabetes mellitus in first degree relative Patient's father is Mother Family history of transient ischemic attacks, Onset Age: 70 Patient's mother is Family history of chronic obstructive pulmonary disease Sibling Family history of lupus erythematosus, Onset Age: 47 Patient's brother is Grandparent Family history of suicide Other Diabetes mellitus Family history of cardiovascular disease Social History Social History Smoking status: Never smoker Second hand tobacco smoke exposure: No Alcohol intake: current Drinks per week: 10 Alcohol use details: 1-2 BEERS OR WINE DAILY Substance use: never Substance use type: does not use Do You Feel Safe in your Home?: Yes Lack of Transportation: No Lack of Food: Never True Current Housing: I Have Housing Concerned About Future Housing: No Difficulty Paying Gas/Electric Bills: No Difficulty Paying for Meds: No Currently Unemployed: No Education: High School Diploma/GED Difficulty w/ Childcare or Family Care: No Living arrangements: with family Additional living arrangements comments: 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 Gender identity (if verbalized by the patient): Male Spiritual care concerns: No Meds Home Medications and Allergies Home Medications Medication Instructions Recorded Confirmed Type glucosamine sulfate 500 mg tablet 500 mg PO DAILY 02/07/20 12/30/23 History (Glucosamine) multivitamin 1 tablet PO DAILY 08/14/20 12/30/23 History omega-3 fatty acids 1,000 mg 1,000 mg PO DAILY 05/10/21 12/30/23 History capsule (Fish Oil Concentrate) azelastine 137 mcg (0.1 %) nasal See Rx Instructions .Route 07/27/23 12/30/23 Rx spray .COMPLEX #30 mL losartan 100 mg tablet See Rx Instructions .Route 08/19/23 12/30/23 Rx .COMPLEX #90 tabs rosuvastatin 20 mg tablet See Rx Instructions .Route 08/19/23 12/30/23 Rx .COMPLEX #90 tabs amlodipine 10 mg tablet 5 mg PO DAILY 08/25/23 12/30/23 History allopurinol 300 mg tablet See Rx Instructions .Route 12/02/23 12/30/23 Rx .COMPLEX #90 tabs celecoxib 100 mg capsule See Rx Instructions .Route 12/31/23 Rx .COMPLEX #180 caps Allergies Allergy/AdvReac Type Severity Reaction Status Date / Time No Known Allergies Allergy Verified 01/18/24 06:51 Vital Signs Vital Signs - 24 hr 01/18/24 06:53 Temperature 96.5 F L Pulse Rate 66 Respiratory Rate 18 Blood Pressure 157/89 H Pulse Oximetry 96 Oxygen Delivery Room Air Exam Const: General: cooperative and healthy appearing Resp: Effort & Inspection: normal respiratory effort and able to speak in complete sentences Auscultation: clear to auscultation bilaterally Cardio: Rate: regular rate Rhythm: regular rhythm GI: Inspection: normal to inspection GI Palp: No No hepatosplenomegaly present Auscultation: normal bowel sounds Rectal Exam: deferred Skin: General skin exam: normal color Psych: Appearance: grossly normal Mental Status: mental status grossly normal Assessment and Plan Assessment and plan (1) History of colon polyps: Code(s): Z86.010 - Personal history of colon polyps Status: Acute Assessment and Plan: The patient is deemed a good candidate for the procedure. Consent signed. Will proceed.
--- NOTE | 2024-01-18 07:41 | WPDANESEPPF ---
Anes - Initial Pre Proc Eval Procedure: Operation Date: 01/18/24 08:00 Proposed Procedures p Screening Colonoscopy - Jesse Chang MD Date/Time: 01/18/24 07:41 Surgeon: Jesse Chang MD Pre Op Diagnosis: hx colon polyps Patient Data Age: 78 Gender: M Height: 1.73 m Weight: 99.9 kg Last Vital Signs Temp 35.8 C L 01/18/24 06:53 Pulse 66 01/18/24 06:53 Resp 18 01/18/24 06:53 BP 157/89 H 01/18/24 06:53 Pulse Ox 96 01/18/24 06:53 O2 Del Method Room Air 01/18/24 06:53 Allergies Allergy/AdvReac Type Severity Reaction Status Date / Time No Known Allergies Allergy Verified 01/18/24 06:51 Home Medications Medication Instructions Recorded Confirmed Type glucosamine sulfate 500 mg tablet 500 mg PO DAILY 02/07/20 12/30/23 History (Glucosamine) multivitamin 1 tablet PO DAILY 08/14/20 12/30/23 History omega-3 fatty acids 1,000 mg 1,000 mg PO DAILY 05/10/21 12/30/23 History capsule (Fish Oil Concentrate) azelastine 137 mcg (0.1 %) nasal See Rx Instructions .Route 07/27/23 12/30/23 Rx spray .COMPLEX #30 mL losartan 100 mg tablet See Rx Instructions .Route 08/19/23 12/30/23 Rx .COMPLEX #90 tabs rosuvastatin 20 mg tablet See Rx Instructions .Route 08/19/23 12/30/23 Rx .COMPLEX #90 tabs amlodipine 10 mg tablet 5 mg PO DAILY 08/25/23 12/30/23 History allopurinol 300 mg tablet See Rx Instructions .Route 12/02/23 12/30/23 Rx .COMPLEX #90 tabs celecoxib 100 mg capsule See Rx Instructions .Route 12/31/23 Rx .COMPLEX #180 caps Patient hx anesthesia problems: none Family hx anesthesia problems: none Results Review: All pre-operative results and documents have been reviewed as part of the pre-operative evaluation. [facility] Past Medical History Medical History Bilateral hip pain BMI 33.0-33.9,adult BMI 35.0-35.9,adult Cervical radiculopathy Cervicalgia DJD (degenerative joint disease) of cervical spine Elevated fasting glucose Elevated serum homocysteine level Encounter for Medicare annual wellness exam Encounter for routine adult health examination without abnormal findings Enlarged prostate without lower urinary tract symptoms (luts) Follow up Gout Hearing loss Hyperlipidemia Left arm weakness Left elbow pain Left groin pain Left shoulder pain Lumbosacral spondylosis with radiculopathy Mass of left lower leg Muscle ache of extremity ELIESER on CPAP Pain and swelling of left lower extremity Paresthesia and pain of left extremity Proteinuria Pure hypercholesterolemia Sciatica of left side Sinusitis Vision changes Vitamin B12 deficiency Surgical History Surgical History History of arthroplasty of left shoulder History of left inguinal hernia repair Open recurrent left inguinal hernia repair with Marlex onlay mesh patch (Sorin repair). 08/10/23 S/P cataract surgery Family History Family History Father Family history of suicide Family history of diabetes mellitus in first degree relative Patient's father is Mother Family history of transient ischemic attacks, Onset Age: 70 Patient's mother is Family history of chronic obstructive pulmonary disease Sibling Family history of lupus erythematosus, Onset Age: 47 Patient's brother is Grandparent Family history of suicide Other Diabetes mellitus Family history of cardiovascular disease Social History Social History Smoking status: Never smoker Second hand tobacco smoke exposure: No Alcohol intake: current Drinks per week: 10 Alcohol use details: 1-2 BEERS OR WINE DAILY Substance use: never Substance use type: does not use Do You Feel Safe in your Home?: Yes Lack of Transportation: No Lack of Food: Never True Current Housing: I Have Housing Concerned About Future Housing: No Difficulty Paying Gas/Electric Bills: No Difficulty Paying for Meds: No Currently Unemployed: No Education: High School Diploma/GED Difficulty w/ Childcare or Family Care: No Living arrangements: with family Additional living arrangements comments: 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 Informed Consent: The patient's anesthetic plan and its attendant risks and benefits were discussed with the patient/family/POA. Questions were solicited and answers provided to the satisfaction of the patient/family/POA.
[2024-01-18 08:27] VITALS: BP 105/63; PULSE 57; RESP 21; O2SAT 94
[2024-01-18 08:37] VITALS: BP 116/69; PULSE 50; RESP 17; O2SAT 94
[2024-01-18 08:47] VITALS: BP 131/78; PULSE 58; RESP 17; O2SAT 94
== END 2024-01-18 08:54 | disposition home or self-care (01) ==
PROVIDERS: PCP Internal Medicine; Visit Provider Internal Medicine Gastroenterology
PROC: 0DJD8ZZ Inspection of Lower Intestinal Tract, Via Natural or Artificial Opening Endoscopic (ICD-10-PCS; CPT 45378; principal; 2024-01-18 08:00)
DX: Z12.11 Encounter for screening for malignant neoplasm of colon (principal); D12.2 Benign neoplasm of ascending colon; D12.3 Benign neoplasm of transverse colon; D12.4 Benign neoplasm of descending colon; E78.5 Hyperlipidemia, unspecified; G47.33 Obstructive sleep apnea (adult) (pediatric); M10.9 Gout, unspecified; E66.9 Obesity, unspecified; Z68.33 Body mass index [BMI] 33.0-33.9, adult
CPT/HCPCS: 45385; 88305; J2704; J7120

== ENCOUNTER 2024-04-08 09:58 | Outpatient (CLI) | payer MEDICARE, SELFPAY ==
--- OUTSIDE RECORDS SUMMARY | 2024-04-08 10:37 | XMS_ITS | Referral Summary ---
Author Organization [facility] C Address [address] [place] [address] Care Team Providers Care Shift Manager Name Role Phone Nash Brady MD Primary Care Provider [phone] Allergies No known active allergies Medications allopurinoL (ZYLOPRIM) 300 mg tablet Take 300 mg by mouth daily Active amLODIPine (NORVASC) 10 mg tablet Take 10 mg by mouth daily Active multivitamin capsule Take 1 capsule by mouth daily Active fish oil-dha-epa 1,200-144-216 mg capsule Take 1 capsule by mouth daily Active losartan (COZAAR) 100 mg tablet Take 100 mg by mouth daily Active azelastine (ASTELIN) 137 mcg (0.1 %) nasal spray Administer 2 sprays into each nostril 2 (two) times a day Use in each nostril as directed Active rosuvastatin (CRESTOR) 20 mg tablet Take 20 mg by mouth daily Active UNABLE TO FIND Take 1 each by mouth daily Med Name: Herbal Prostate support Active Active Problems Problem Noted Date Diagnosed Date Status post cervical spinal fusion 10/18/2019 Assessment & Plan (02/21/2020 4:18 PM HEATING TECHNICIAN): Mr. Martinez is doing extremely well after C5-C7 ACDF with resolution of the symptoms. He is very pleased with his result. Plan to see him back in 1 year's time with flexion-extension cervical spine films at that time. Assessment & Plan (10/18/2019 1:21 PM CDT): Mr. Martinez is status post C5-6 and C6-7 anterior cervical decompression fusion with improvement of his preoperative symptoms. I am very pleased with his progress. I plan to see him back in four and half months with flexion-extension cervical spine films at that time. Resolved Problems Problem Noted Date Diagnosed Date Resolved Date Spinal stenosis in cervical region 08/24/2019 10/18/2019 Overview (08/24/2019): Added automatically from request for surgery [id number] Assessment & Plan (08/24/2019 3:46 PM CDT): Mr. Martinez has cervical stenosis and foraminal stenosis with a left C6 and C7 motor radiculopathy. His pain is improved with injections. He also has severe stenosis with some flattening of the anterior cord at C6-7. He has foraminal stenosis at C4-5 which is asymptomatic. I have offered him C5-C7 anterior cervical decompression and fusion with partial vertebrectomy C6, removing greater than 50% of the height of C6, in order to decompress the large osteophyte at this level. We discussed discussed risks, alternatives and benefits to surgery with risks including, but not limited to, bleeding, infection, coma, , heart attack, stroke, paralysis, loss of vision, CSF leak, spinal instability requiring future operations, failure to relieve symptoms, bowel bladder, dysfunction and sexual dysfunction. We discussed increased risks of anterior cervical surgery including difficulty swallowing and damaged damage to the recurrent laryngeal nerve causing vocal cord paralysis and hoarseness of voice. He understands and wishes to proceed. 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 Not on file Not on file Last Filed Vital Signs Vital Sign Reading Time Taken Comments Blood Pressure 165/77 02/21/2020 12:10 PM HEATING TECHNICIAN Pulse 68 02/21/2020 12:10 PM HEATING TECHNICIAN Temperature 36.5 C (97.7 F) 09/02/2019 11:30 AM CDT Respiratory Rate 12 02/21/2020 12:10 PM HEATING TECHNICIAN Oxygen Saturation 97% 09/02/2019 1:10 PM CDT Inhaled Oxygen Concentration - - Weight 102.5 kg (226 lb) 02/21/2020 12:10 PM HEATING TECHNICIAN Height 170.2 cm (5' 7 ) 02/21/2020 12:10 PM HEATING TECHNICIAN Body Mass Index 35.4 02/21/2020 12:10 PM HEATING TECHNICIAN Plan of Treatment Not on file Medical Devices Implanted Type Area Mathematical Physicist Device Identifier Shelf Expiration Date Model / Serial / Lot Cer[employer] Inc 700-025 I Factor Allograft Putty Syringe Graft 2.5cc Bone - [id number] Implanted:Qty: 1 on 09/02/2019 by Scott Buck MD at [facility] N/A: Spine Cervical [employer] Inc 04/15/2022 700-025 / / [id number] [employer] 3d Cervical [id number] 7 Deg - [id number] Implanted:Qty: 1 on 09/02/2019 by Scott Buck MD at [facility] N/A: Spine Cervical Core Link [id number] 02/02/2024 [id number] 08 / / [id number] [employer] 3d Cervical [id number] 7 Deg - [id number] Implanted:Qty: 1 on 09/02/2019 by Scott Buck MD at [facility] N/A: Spine Cervical Core Link [id number] 01/13/2022 [id number] / / [id number] Core Link Anodyne 30mm Level 2 Spine Cervical Anterior Plate Bone - [id number] Implanted:Qty: 1 on 09/02/2019 by Scott Buck MD at [facility] N/A: Spine Cervical Core Link / / Core Link Anodyne 4mm 14mm Variable Angle Self Tap Spine Cervical Screw - [id number] Implanted:Qty: 6 on 09/02/2019 by Scott Buck MD at [facility] N/A: Spine Cervical Core Link [id number] / / Insurance MEDICARE [employer] GENERIC Care Teams Shift Manager Relationship Specialty Start Date End Date Nash Brady MD [address] [place] [address] PCP - General Internal Medicine 06/22/19
--- OUTSIDE RECORDS SUMMARY | 2024-04-08 10:37 | XMS_ITS | Clinical Summary ---
Author Organization [facility] Address [address] [place] [address] Care Team Providers Care Calcine Furnace Loader Name Role Phone Alexys Mcelroy MD Primary Care Provider [phone] Source Comments [facility],non-owned Affiliates and Associated Physician Practices is amultiple site organization consisting of ambulatory clinics and hospital sitesin [place], [place], [place]. This disclosure is being madepursuant to the Care Everywhere program and may not contain all information available regarding this patient. Last updated 17.[facility] Active Problems Problem Noted Date Diagnosed Date Injury of conjunctiva and co rneal abrasion of eye without foreign body 02/13/2012 Social History Tobacco Use Types Packs/Day Years Used Date Smoking Tobacco: Never Assessed Sex and Gender Information Value Date Recorded Sex Assigned at Not on file Gender Identity Not on file Sexual Orientation Not on file Plan of Treatment Health Maintenance Due Date Last Done Comments MEDICARE AWV 12 MONTHS 1944 DTAP/TDAP/TD VACCINES (1 - Tdap) 10/13/1963 PNEUMOCOCCAL VACCINE 50+ (1 of 1 - PCV) 1994 ZOSTER VACCINE (1 of 2) 1994 Respiratory Syncytial Virus (RSV) Vaccine Pt: or over 60 yrs (1 - 1-dose 75+ series) 10/13/2019 COVID-19 VACCINE ( - 2023-2 5 season) 2023 INFLUENZA VACCINE (#1) 2023 DEPRESSION SCREENING 02/17/2024 HEPATITIS B VACCINE Aged Out No longe r eligible based on patient's age to complete this topic HIB VACCINE Aged Out No longer eligi ble based on patient's age to complete this topic HPV VACCINE Aged Out No longer eligi ble based on patient's age to complete this topic MENINGOCOCCAL (Group B) VACCINE Aged Out No longer eligible based on patient's age to complete this topic MENINGOCOCCAL VACCINE Aged Out No lima jose r eligible based on patient's age to complete this topic Care Teams Calcine Furnace Loader Relationship Specialty Start Date End Date Alexys Mcelroy MD [address] [place] [address] PCP - General 03/29/09
--- OUTSIDE RECORDS SUMMARY | 2024-04-08 10:37 | XMS_ITS | Referral Summary ---
Author Organization [facility] Address [address] [place] [address] Care Team Providers Care Classroom Instructional Aide Name Role Phone Alexys Mcelroy MD Primary Care Provider [phone] Source Comments [facility],non-owned Affiliates and Associated Physician Practices is amultiple site organization consisting of ambulatory clinics and hospital sitesin [place], [place], [place] and [place]. This disclosure is being madepursuant to the Care Everywhere program and may not contain all information available regarding this patient. Last updated 17.[facility] Active Problems Problem Noted Date Diagnosed Date Injury of conjunctiva and co rneal abrasion of eye without foreign body 02/13/2012 Social History Tobacco Use Types Packs/Day Years Used Date Smoking Tobacco: Never Assessed Sex and Gender Information Value Date Recorded Sex Assigned at Not on file Gender Identity Not on file Sexual Orientation Not on file Plan of Treatment Not on file Care Teams Classroom Instructional Aide Relationship Specialty Start Date End Date Alexys Mcelroy MD [address] [place] [address] PCP - General 03/29/09
--- OUTSIDE RECORDS SUMMARY | 2024-04-08 10:37 | XMS_ITS | Clinical Summary ---
Author Organization [facility] C Address [address] [place] [address] Care Team Providers Care Produce Manager Name Role Phone Nash Brady MD Primary Care Provider [phone] Allergies No known active allergies Medications allopurinoL [...] 10/18/2019 Assessment & Plan (02/21/2020 4:18 PM ARCHITECTURAL SALES CONSULTANT): Mr. Martinez is doing extremely well after [...] (08/24/2019): Added automatically from request for surgery [id number] Assessment & Plan (08/24/2019 3:46 PM CDT): [...] voice. He understands and wishes to proceed. Surgical History Surgery Date Site/Laterality Comments BUNIONECTOMY Left INGUINAL HERNIA REPAIR Left ANTERIOR FUSION CERVICAL SPINE 08/17/2019 - 09/16/2019 S/P C5-7 ACDF ([facility]) Medical History Medical History Date Comments Gout Spinal stenosis in cervical region Osteoarthritis Hypertension Obesity (BMI 35.0-39.9 without comorbidity) BMI 35 Sleep apnea with use of continuous positive airw ay pressure (CPAP) uses CPAP Family History Medical History Relation Name Comments Diabetes Father Heart disease Mother Stroke Mother Relation Name Status Comments Father Mother Social History Tobacco Use Types Packs/Day Years [...] on file Legal Sex Male 12:17 AM ARCHITECTURAL SALES CONSULTANT Gender Identity Not on file Sexual Orientation Not on file 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 Not on file Not on file Obstetrics History Last Filed Vital Signs Vital Sign Reading Time Taken Comments Blood Pressure 165/77 02/21/2020 12:10 PM ARCHITECTURAL SALES CONSULTANT Pulse 68 02/21/2020 12:10 PM ARCHITECTURAL SALES CONSULTANT Temperature 36.5 C (97.7 F) 09/02/2019 11:30 AM CDT Respiratory Rate 12 02/21/2020 12:10 PM ARCHITECTURAL SALES CONSULTANT Oxygen Saturation 97% 09/02/2019 1:10 PM CDT Inhaled Oxygen Concentration - - Weight 102.5 kg (226 lb) 02/21/2020 12:10 PM ARCHITECTURAL SALES CONSULTANT Height 170.2 cm (5' 7 ) 02/21/2020 12:10 PM ARCHITECTURAL SALES CONSULTANT Body Mass Index 35.4 02/21/2020 12:10 PM ARCHITECTURAL SALES CONSULTANT Plan of Treatment Not on file Medical Devices Implanted Type Area Ladle Liner Device Identifier Shelf Expiration Date Model / Serial / Lot [employer] 700-025 I Factor Allograft Putty Syringe Graft 2.5cc Bone - [id number] Implanted:Qty: 1 on 09/02/2019 by Scott Buck MD at [facility] N/A: Spine Cervical [employer] 04/15/2022 700-025 / / [id number] Cage [facility] 3d Cervical [id number] 7 Deg - [id number] Implanted:Qty: 1 on 09/02/2019 by Scott Buck MD at [facility] N/A: Spine Cervical Core Link [id number] 02/02/2024 [id number] 08 / / [id number] [employer] 3d Cervical 14.6m44a3cu 7 Deg - [id number] Implanted:Qty: 1 on 09/02/2019 by Scott Buck MD at [facility] N/A: Spine Cervical Core Link [id number] 01/13/2022 [id number] 07 / / [id number] Core Link Anodyne 30mm Level 2 Spine Cervical Anterior Plate Bone - [id number] Implanted:Qty: 1 on 09/02/2019 by Scott Buck MD at [facility] N/A: Spine Cervical Core Link / / Core Link Anodyne 4mm 14mm Variable Angle Self Tap Spine Cervical Screw - [id number] Implanted:Qty: 6 on 09/02/2019 by Scott Buck MD at [facility] N/A: Spine Cervical Core Link / / Insurance MEDICARE [employer] GENERIC Care Teams Produce Manager Relationship Specialty Start Date End Date Nash Brady MD [address] [facility] [address] [place] [address] PCP - General Internal Medicine 06/22/19
--- OUTSIDE RECORDS SUMMARY | 2024-04-08 10:37 | XMS_ITS | Patient Health Summary ---
Author Organization [facility] Address [address] [address] Care Team Providers Care Contract Preparer Name Role Phone Alexys Mcelroy MD Primary Care Provider [phone] Note from [facility],non-owned Affiliates and Associated Physician Practices is amultiple site organization consisting of ambulatory clinics and hospital sitesin [place], [place], [place] and [place]. This disclosure is being madepursuant to the Care Everywhere program and may not contain all information available regarding this patient. Last updated 17.[facility] Active Problems Problem Noted Date Diagnosed Date Injury of conjunctiva and co rneal abrasion of eye without foreign body 02/13/2012 Social History Tobacco Use Types Packs/Day Years Used Date Smoking Tobacco: Never Assessed Sex and Gender Information Value Date Recorded Sex Assigned at Not on file Gender Identity Not on file Sexual Orientation Not on file Care Teams Contract Preparer Relationship Specialty Start Date End Date Alexys Mcelroy MD [address] [place] [address] PCP - General 03/29/09
[2024-04-08 10:54] LABS: Influenza A QL RT-PCR Negative (Negative); Influenza B QL RT-PCR Negative (Negative); RSV RNA, RT-PCR Negative (Negative); SARS-CoV-2 RNA PCR Negative (Negative)
== END 2024-04-08 09:59 | disposition home or self-care (01) ==
LOC: ANHLAB 10:00
PROVIDERS: PCP Internal Medicine; Visit Provider Internal Medicine
DX: R50.9 Fever, unspecified (principal); Z20.822 Contact with and (suspected) exposure to COVID-19
CPT/HCPCS: 87637

== ENCOUNTER 2024-08-10 08:04 | Outpatient (CLI) | payer MEDICARE, SELFPAY ==
--- NOTE | ~2024-08-10 | MR_ITS ---
MRI of the cervical spine Clinical History: Radiculopathy Technique: Axial T2-weighted and gradient images, and sagittal T1-weighted, T2-weighted, and STIR darnell ges were acquired. COMPARISON: 06/15/2019 Findings: Interval anterior fusion from C5 to C7 noted. There is associated susceptibility artifact. No fracture or subluxation evident. No suspicious bone marrow signal abnormality seen. At C2-C3, there is no disc bulge or herniation. There is mild left facet arthropathy. Possible minima l left neural foraminal narrowing. Right neural foramen preserved. No canal stenosis or cord compress ion. At C3-C4, there is no disc bulge or herniation. Probable left neural foraminal narrowing present. Rig ht neural foramen probably preserved. No canal stenosis or cord compression. At C4-C5, there is advanced degenerative disc narrowing. Possible minimal left neural foraminal narro wing. Right neural foramen preserved. No canal stenosis or cord compression. There is left facet arth ropathy. At C5-C6, there is no canal stenosis or cord compression. Probable bilateral neural foraminal narrowi ng. At C6-C7, there is mild canal stenosis without nicolas cord compression. There is bilateral neural fora lucrecia narrowing. No abnormal signal seen in the spinal cord. Paravertebral soft tissues are unremarkable. Impression: Status post anterior fusion from C5 to C7. Mild to mild-moderate degenerative spondylosis overall, as above. Reviewed, dictated and finalized at [facility]. Impression: Status post anterior fusion from C5 to C7. Mild to mild-moderate degenerative spondylosis overall, as above.
--- NOTE | ~2024-08-10 | US_ITS ---
Limited ABDOMINAL ULTRASOUND (Doppler ultrasound interrogation techniques used as needed for this exa m.) Ordering provider: Nash Brady MD History: . K76.0 - Fatty (change of) liver, not elsewhere classified . Comparison: None. FINDINGS: PANCREAS: Not demonstrated. PORTAL VEIN: Hepatopedal flow demonstrated. LIVER: Hepatomegaly measuring 19 cm.. Increased echogenicity. No focal hepatic lesions or perihepatic fluid collections are identified. BILIARY DUCTS: No intra or extrahepatic biliary dilation. Common bile duct measures 6 mm in diameter which is normal for patient's age. GALLBLADDER: Normal. No stones, sludge, gallbladder wall thickening or pericholecystic fluid. Negati ve sonographic Jones's sign. FREE FLUID: None visualized within the upper abdomen. IMPRESSION: normal limited abdominal ultrasound. Reviewed, dictated and finalized at location A.
--- NOTE | ~2024-08-10 | US_ITS ---
US renal BI Ordering provider: Nash Brady MD History: . R79.89 - Other specified abnormal findings of blood chemi... . Comparison: None. Technique: Ultrasound bilateral kidneys. Findings: RIGHT KIDNEY: Measures 12.1x 5x 6 cm in length which is normal in size. No renal cysts. No renal mass or visualized echogenic stones. Otherwise, normal echotexture and contour. No hydronephrosis. Normal renal cortical thickness. LEFT KIDNEY: Measures 12x 4x 5.8 cm in length which is normal in size. No renal cysts. No renal mass or visualized echogenic stones. Otherwise, normal echotexture and contour. No hydronephrosis. Normal renal cortical thickness. BLADDER: Normal. Wall thicknesses 0.45 cm. The Ureteral jets were not seen bilaterally. IMPRESSION: No definite abnormality seen. No definite abnormality seen. Reviewed, dictated and finalized at location A.
== END 2024-08-10 08:05 | disposition home or self-care (01) ==
LOC: GOSHIMG 08:04
PROVIDERS: PCP Internal Medicine; Visit Provider Internal Medicine
DX: K76.0 Fatty (change of) liver, not elsewhere classified (principal); R79.89 Other specified abnormal findings of blood chemistry; I10 Essential (primary) hypertension; Z98.890 Other specified postprocedural states; Z98.1 Arthrodesis status; M47.22 Other spondylosis with radiculopathy, cervical region
CPT/HCPCS: 72141; 76705; 76775

== ENCOUNTER 2024-10-05 08:35 | Outpatient (CLI) | payer MEDICARE, SELFPAY ==
--- OUTSIDE RECORDS SUMMARY | 2024-10-05 08:39 | XMS_ITS | Clinical Summary ---
Author Organization [facility] C Address [address] [place] [address] Care Team Providers Care Food And Beverage Cashier Name Role Phone Nash Brady MD Primary Care Provider [phone] Allergies No known active allergies Medications allopurinoL [...] 10/18/2019 Assessment & Plan (02/21/2020 4:18 PM AIRCRAFT MOTOR MECHANIC): Mr. 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 Not on file Not on file Obstetrics History Last Filed Vital Signs Vital Sign Reading Time Taken Comments Blood Pressure 165/77 02/21/2020 12:10 PM AIRCRAFT MOTOR MECHANIC Pulse 68 02/21/2020 12:10 PM AIRCRAFT MOTOR MECHANIC Temperature 36.5 C (97.7 F) 09/02/2019 11:30 AM CDT Respiratory Rate 12 02/21/2020 12:10 PM AIRCRAFT MOTOR MECHANIC Oxygen Saturation 97% 09/02/2019 1:10 PM CDT Inhaled Oxygen Concentration - - Weight 102.5 kg (226 lb) 02/21/2020 12:10 PM AIRCRAFT MOTOR MECHANIC Height 170.2 cm (5' 7) 02/21/2020 12:10 PM AIRCRAFT MOTOR MECHANIC Body Mass Index 35.4 02/21/2020 12:10 PM AIRCRAFT MOTOR MECHANIC Plan of Treatment Not on file Medical Devices Implanted Type Area Linen Checker Device Identifier Shelf Expiration Date Model / Serial / Lot [employer] 700-025 I Factor Allograft Putty Syringe Graft 2.5cc Bone - [id number] Implanted:Qty: 1 on 09/02/2019 by Scott Buck MD at [facility] N/A: Spine Cervical [employer] 04/15/2022 700-025 / / [id number] Cage [facility] 3d Cervical [id number] 7 Deg - [id number] Implanted:Qty: 1 on 09/02/2019 by Scott Buck MD at [facility] N/A: Spine Cervical Core Link [id number] 02/02/2024 [id number] 08 / / [id number] [employer] 3d Cervical 14.6d44h5ix 7 Deg - [id number] Implanted:Qty: 1 on 09/02/2019 by Scott Buck MD at [facility] N/A: Spine Cervical Core Link [id number] 01/13/2022 [id number] 07 / / [id number] Core Link Anodyne 30mm Level 2 Spine Cervical Anterior Plate Bone - [id number] Implanted:Qty: 1 on 09/02/2019 by Scott Buck MD at [facility] N/A: Spine Cervical Core Link / / Core Link Anodyne 4mm 14mm Variable Angle Self Tap Spine Cervical Screw - [id number] Implanted:Qty: 6 on 09/02/2019 by Scott Buck MD at [facility] N/A: Spine Cervical Core Link / / Insurance MEDICARE [employer] GENERIC Care Teams Food And Beverage Cashier Relationship Specialty Start Date End Date Nash Brady MD [address] [place] [address] PCP - General Internal Medicine 06/22/19
--- OUTSIDE RECORDS SUMMARY | 2024-10-05 08:39 | XMS_ITS | Clinical Summary ---
Author Organization [facility] Address [address] [place] [address] Care Team Providers Care Intermediate School Teacher Name Role Phone Alexys Mcelroy MD Primary Care Provider Source Comments [facility],non-owned Affiliates and Associated Physician Practices is amultiple site organization consisting of ambulatory clinics and hospital sitesin [place], [place], [place] and [place]. This disclosure is being madepursuant to the Care Everywhere program and may not contain all information available regarding this patient. Last updated 17.[facility] Active Problems Problem Noted Date Diagnosed Date Injury of conjunctiva and co rneal abrasion of eye without foreign body 02/13/2012 Social History Tobacco Use Types Packs/Day Years Used Date Smoking Tobacco: Never Assessed Sex and Gender Information Value Date Recorded Sex Assigned at Not on file Legal Sex Male 6:52 PM AZURE DEVELOPER Gender Identity Not on file Sexual Orientation [...] VACCINE ( - 2023-2 5 season) 2023 DEPRESSION SCREENING 02/17/2024 INFLUENZA VACCINE (#1) 2024 HEPATITIS B VACCINE Aged Out No longe r eligible based on patient's age to complete this topic HIB VACCINE Aged Out No longer eligi ble based on patient's age to complete this topic HPV VACCINE Aged Out No longer eligi ble based on patient's age to complete this topic MENINGOCOCCAL (Group B) VACC INE SHARED DECISION-MAKING Aged Out No longer eligibl e based on patient's age to complete this topic MENINGOCOCCAL GROUPS A/C/Y/W VACCINE Aged Out No longer eligible b ased on patient's age to complete this topic Insurance MEDICARE MEDICARE [employer] SELF PAY NO INSURANCE Member Subscriber Plan / Payer (Ef fective for All Dates) Name:Martinez Khari Laurel Member ID:Not on file Relation to Subscriber:Not on file Name:KHARI MARTINEZ Laurel Subscriber ID:Not on file (Home) Address: [address] [place] [address] [place] [address] Payer ID:Not on file Group ID:Not on file Type:Self Pay Address: [place], [place] Care Teams Intermediate School Teacher Relationship Specialty Start Date End Date Alexys Mcelroy MD [address] [facility] [address] [place] [address] PCP - General 03/29/09
--- NOTE | 2024-10-05 09:00 | NEURO_ITS ---
Impression: # Complains of upper extremity pain ? # Mild bilateral Carpal Tunnel Syndrome ? # Right Ulnar Neuropathy across the elbow ? # Normal Needle/ EMG exam Nerve Conduction Studies ?Stim Site NR Peak (ms) P-T Amp (?V) Site1 Site2 Delta-P (ms) Dist (cm) Nick (m/s) Left Median Anti Sensory (2-3nd Digit) Wrist ? 4.2 27.0 Wrist 2-3nd Digit 4.2 14.0 33 Wrist ? 4.0 24.5 Wrist 2-3nd Digit 4.2 14.0 33 Right Median Anti Sensory (2-3nd Digit) Wrist ? 4.1 29.8 Wrist 2-3nd Digit 4.1 14.0 34 Wrist ? 4.1 34.8 Wrist 2-3nd Digit 4.1 14.0 34 Left Radial Anti Sensory (Base 1st Digit) Wrist ? 2.3 8.8 Wrist Base 1st Digit 2.3 0.0 Right Radial Anti Sensory (Base 1st Digit) Wrist ? 2.8 8.9 Wrist Base 1st Digit 2.8 0.0 Left Ulnar Anti Sensory (5th Digit) Wrist ? 3.0 15.1 Wrist 5th Digit 3.0 14.0 47 Right Ulnar Anti Sensory (5th Digit) Wrist ? 2.9 14.7 Wrist 5th Digit 2.9 14.0 48 ?Stim Site NR Onset (ms) O-P Amp (mV) Site1 Site2 Delta-0 (ms) Dist (cm) Nick (m/s) Left Median Motor (Abd Poll Brev) Wrist ? 4.7 1.8 Elbow Wrist 5.8 30.0 52 Elbow ? 10.5 2.0 Right Median Motor (Abd Poll Brev) Wrist ? 4.4 2.2 Elbow Wrist 5.6 29.0 52 Elbow ? 10.0 1.5 Left Ulnar Motor (Abd Dig Minimi) Wrist ? 2.9 6.0 A Elbow Wrist 5.5 28.0 51 A Elbow ? 8.4 4.1 B Elbow Wrist 4.4 22.0 50 B Elbow ? 7.3 2.7 Right Ulnar Motor (Abd Dig Minimi) Wrist ? 2.7 7.5 A Elbow Wrist 6.9 30.0 43 A Elbow ? 9.6 5.8 B Elbow Wrist 4.8 21.0 44 B Elbow ? 7.5 2.2 F Wave Studies ?NR F-Lat (ms) L-R F-Lat (ms) Left Median (Mrkrs) (Abd Poll Brev) ? 29.06 1.41 Right Median (Mrkrs) (Abd Poll Brev) ? 30.47 1.41 Left Ulnar (Mrkrs) (Abd Dig Min) ? 31.78 0.09 Right Ulnar (Mrkrs) (Abd Dig Min) ? 31.68 0.09 Electromyography ?Side Muscle Nerve Root Ins Act Fibs Amp Dur Recrt Comment Right 1stDorInt Ulnar C8-T1 Nml Nml Nml Nml Nml Right Ext Indicis Radial (Post Int) C7-8 Nml Nml Nml Nml Nml Right Ext Digitorum Radial (Post Int) C7-8 Nml Nml Nml Nml Nml Right BrachioRad Radial C5-6 Nml Nml Nml Nml Nml Right PronatorTeres Median C6-7 Nml Nml Nml Nml Nml Right Abd Poll Brev Median C8-T1 Nml Nml Nml Nml Nml Right ABD Dig Min Ulnar C8-T1 Nml Nml Nml Nml Nml Right FlexPolLong Median (Ant Int) C7-8 Nml Nml Nml Nml Nml Right Abd Poll Long Radial (Post Int) C7-8 Nml Nml Nml Nml Nml Left 1stDorInt Ulnar C8-T1 Nml Nml Nml Nml Nml Left Ext Indicis Radial (Post Int) C7-8 Nml Nml Nml Nml Nml Left Ext Digitorum Radial (Post Int) C7-8 Nml Nml Nml Nml Nml Left BrachioRad Radial C5-6 Nml Nml Nml Nml Nml Left PronatorTeres Median C6-7 Nml Nml Nml Nml Nml Left Abd Poll Brev Median C8-T1 Nml Nml Nml Nml Nml Left ABD Dig Min Ulnar C8-T1 Nml Nml Nml Nml Nml Left FlexPolLong Median (Ant Int) C7-8 Nml Nml Nml Nml Nml Left Abd Poll Long Radial (Post Int) C7-8 Nml Nml Nml Nml Nml
== END 2024-10-05 08:36 | disposition home or self-care (01) ==
LOC: ANHNEURO 08:37
PROVIDERS: PCP Internal Medicine; Visit Provider Internal Medicine
DX: G56.03 Carpal tunnel syndrome, bilateral upper limbs (principal); G56.21 Lesion of ulnar nerve, right upper limb
CPT/HCPCS: 95886; 95911

== ENCOUNTER 2024-12-12 08:26 | Day surgery (SDC) | payer MEDICARE, SELFPAY ==
--- NOTE | ~2024-12-12 | XR_ITS ---
EXAMINATION: XR fluoroscopy no charge DATE: 12/12/2024 10:35 INDICATION: Midline C7-T1 interlaminar epidural steroid injection. TECHNIQUE: 2 fluoroscopic images of the lower cervical spine were obtained during procedure performed by Dr. Amato. Radiologist was not present for the imaging or procedure. The amount of fluoroscopy time used during this procedure was 0.8 minutes. Total DAP was 9.82 mGy. COMPARISON: MRI dated 08/10/2024 FINDINGS: There is been prior instrumented C5-C7 anterior spinal fusion with interbody fusion devices and anterior plate-screw fixation. Spinal needle advanced via right paramedian approach between the C7 and T1 spinous processes. Injected contrast appears to extend a linear fashion along the axis of the paraspinal muscles. IMPRESSION: 1. Fluoroscopy utilized during reported C7-T1 interlaminar epidural steroid injection. See procedure note for further detail. Reviewed, dictated and finalized at location A. IMPRESSION: 1. Fluoroscopy utilized during reported C7-T1 interlaminar epidural steroid inj ection. See procedure note for further detail.
[2024-12-12 09:28] VITALS: BP 159/71; PULSE 70; RESP 16; TEMP 36.6; O2SAT 99
--- NOTE | 2024-12-12 10:00 | P.OP_ITS ---
Procedure Note - Detailed Date of Procedure 12/12/24 Pre-op Diagnosis Cervical radiculopathy, cervical spinal stenosis Post-op Diagnosis Same Procedure Performed Midline Cervical Interlaminar Epidural Steroid Injection at C7-T1 under Fluo roscopic Guidance and with Contrast Control. Surgeon Rios Amato MD Anesthesia Local Description of Procedure INFORMED CONSENT: Risks, benefits and alternatives to the procedure were discussed in detail with the patient who expressed explicit understanding and consent to proceed. Patient was informed verbally and in written form regarding the risks associated with the procedure including the low risk of serious infection, bleeding/bruising, allergic reaction, nerve or organ injury, paralysis, procedural site pain or discomfort, worsening pain and/or mobility, failure to treat and/or disfigurement. The patient expressed explicit understanding and consent to proceed. All materials required for the procedure were available prior to procedure start. Site and side was marked prior to procedure and confirmed in the presence of the patient. PROCEDURE IN DETAIL: The patient was brought to the procedural suite and placed in the prone position. Patient's head was positioned and stabilized with a ProneView pillow or equivalent. Patient was made comfortable with use of pillows under the chest, hips and ankles. Skin overlying the injection site was prepared broadly with ChloraPrep applicator and draped in a sterile manner. Aseptic technique was employed throughout. The endplates of the vertebral body at the site of interest were aligned in the AP view. Slight caudad tilt and ipsilateral oblique angulation was utilized to optimize visualization of the targeted posterior intervertebral foramen at C7-T1. Local anesthesia was established by infiltration with approximately 5 mL of 2% lidocaine via a 1-1/2 inch 27-gauge needle. A 20-gauge 4-inch Tuohy epidural needle was advanced intermittently until appropriate loss of resistance to air was identified via plastic loss of resistance syringe. Lateral view was used to confirm the appropriate positioning of the needle tip within the posterior epidural space. In the AP view, 2.0 mL of Omnipaque 300 contrast medium was injected after negative aspiration for CSF, blood or other bodily fluid, showing appropriate epidural spread of contrast without evidence of intravascular or intrathecal placement. After negative repeat aspiration for CSF, blood or other bodily fluid , A 4 mL solution containing 10 mg of dexamethasone in sterile PF Normal Saline was injected after negative repeat aspiration. Appropriate spread of the injectate was confirmed with washout of previously injected contrast. No parasthesias were elicited. Needle was removed completely intact without difficulty. Images were saved and documented in the patient chart. Patient's skin was cleansed and sterile bandage applied. The patient tolerated the procedure well. The patient was transported to the recovery area in stable condition where they were observed for an appropriate amount of time prior to discharge, without evidence of complication. The patient was instructed to avoid excessive activity for the next 48 hours, including overhead work, reaching or extended device/computer usage. Showers only for 48 hours. They were instructed not to drive or operate heavy machinery for 24 hours. They are to monitor for severe headaches, fevers, chills, night sweats, erythema/swelling at the site or any other signs of infection, bleeding/bruising, bowel or bladder changes as well as new pain, weakness or numbness in the upper or lower extremity. Should they notice these changes, they are instructed to call our office immediately or report directly to the nearest Emergency Department if no answer or if after posted office hours. CONTRAST WASTED: 28mL Omnipaque 300. Complications No immediate complications Condition Stable Disposition Same day [facility] Billing Surgery - Charge Forward: Surgery Billing
--- NOTE | 2024-12-12 10:00 | WPDHPUPDATE1 ---
History and Physical Update Update Date/Time: 12/12/24 10:00 History and Physical has been reviewed, including an updated exam of the patient. There are NO changes in the patient's condition. Risks, benefits, and alternatives have been discussed and questions answered. Patient agrees to proceed with procedure.
[2024-12-12 10:09] VITALS: BP 118/69; PULSE 74; RESP 21; O2SAT 98
[2024-12-12 10:12] VITALS: BP 169/74; PULSE 75; RESP 15; O2SAT 97
[2024-12-12] MEDS: dexAMETHasone SOD PHOS INJ 10 MG/ML 1 ML VIAL IM (10:12)
[2024-12-12] MEDS: LIDOCAINE 1% PF INJ 5 ML VIAL INFILTRATE (10:12)
[2024-12-12 10:15] VITALS: BP 155/76; PULSE 73; RESP 12; O2SAT 97
[2024-12-12 10:21] VITALS: BP 136/69; PULSE 65; RESP 16; O2SAT 100
== END 2024-12-12 10:30 | disposition home or self-care (01) ==
PROVIDERS: PCP Internal Medicine; Visit Provider Anesthesiology Pain Medicine
PROC: (CPT 62321; principal; 2024-12-12 09:50)
DX: M48.02 Spinal stenosis, cervical region (principal); M54.12 Radiculopathy, cervical region
CPT/HCPCS: 62321; 99199

== ENCOUNTER 2025-01-06 08:10 | Outpatient (CLI) | payer MEDICARE, SELFPAY ==
--- NOTE | ~2025-01-06 | XR_ITS ---
EXAMINATION: XR chest 2V, 01/06/2025 8:30 [employer] HISTORY: R06.09 - Other forms of dyspnea; SOB x1 YR COMPARISON: No comparisons available. Technique: 2 views obtained. Findings: The lungs are clear, no effusion. No pneumothorax. Heart is normal size. Mediastinal and hilar contours are within normal limits. Bony thorax no acute abnormality. Impression: No acute cardiopulmonary abnormality. Reviewed, dictated and finalized at location P. [employer] Impression: No acute cardiopulmonary abnormality.
== END 2025-01-06 08:11 | disposition home or self-care (01) ==
LOC: ANHIMG 08:18
PROVIDERS: PCP Internal Medicine; Visit Provider Internal Medicine
DX: R06.09 Other forms of dyspnea (principal); R06.02 Shortness of breath
CPT/HCPCS: 71046